=== PATIENT | female | born 1970 | race Caucasian/White ===

== ENCOUNTER 2024-07-07 12:09 | Outpatient (CLI) | payer OTHER, SELFPAY | END 2024-07-07 12:10 | disposition home or self-care (01) | LOC: NFLDREF 12:11 | PROVIDERS: PCP Physician Assistant; Visit Provider Physician Assistant | DX: N95.1 Menopausal and female climacteric states (principal); R63.5 Abnormal weight gain | CPT/HCPCS: 84443 ==

== ENCOUNTER 2024-08-14 11:43 | Outpatient (CLI) | payer OTHER, SELFPAY | END 2024-08-14 11:44 | disposition home or self-care (01) | LOC: LKVREF 11:43 | PROVIDERS: PCP Physician Assistant; Visit Provider Physician Assistant | DX: R68.82 Decreased libido (principal) | CPT/HCPCS: 84403 ==